=== PATIENT | female | born 1980 | race Asian ===

== ENCOUNTER 2019-02-16 16:27 | Emergency (ER) | payer OTHER ==
[2019-02-16 16:40] VITALS: TEMP 98; BMI 25.9
--- NOTE | 2019-02-16 16:41 | PDOC ---
Rapid Medical Evaluation Chief Complaint: Vaginal Bleeding Time Seen by Provider: 02/16/19 16:34 Medical Evaluation: Allergies Allergy/AdvReac Type Severity Reaction Status Date / Time No Known Allergies Allergy Verified 02/16/19 16:40 Vital Signs Temp Pulse Resp BP Pulse Ox 98 F 77 18 151/76 100 02/16/19 16:36 02/16/19 16:36 02/16/19 16:36 02/16/19 16:36 02/16/19 16:36 02/16/19 16:40 I have performed a brief in-person evaluation of this patient Chief complaint:( weeks GA c/o vaginal spotting since this am with cramping. Pertinent PE findings: stable, NAD, non-focal I have ordered the following: labs, UA, UCX The patient will proceed to the ED for further evaluation. I have performed a brief in-person evaluation of this patient. Discharge Disposition - Diagnosis Vaginal bleeding during - Referrals - Patient Instructions - Post Discharge Activity
[2019-02-16 17:26] LABS: BASO % 0.6 % (0-2.0); HEMATOCRIT 33.8 % (32.4-45.2); HEMOGLOBIN 10.4 GM/dL (10.7-15.3); LYMPH % 27.4 % (8-40); MCH 20.7 pg (25.7-33.7); MCHC 30.7 g/dl (32.0-36.0); MEAN CELL VOLUME 67.3 fl (80-96); MEAN PLT VOLUME 8.9 fl (7.5-11.1); MONO % 9.2 % (3.8-10.2); NEUT % 60.8 % (42.8-82.8); PLATELET COUNT 314 K/MM3 (134-434); RBC 5.02 M/mm3 (3.60-5.2); RDW 18.2 % (11.6-15.6); WHITE BLOOD COUNT 10.8 K/mm3 (4.0-10.0)
[2019-02-16 17:28] LABS: EPI CELLS 1.4 /HPF (0-5/HPF); HYALINE CASTS 2 /lpf (0-8); PH,URINE 6.5 (5.0-8.0); URINE APPEARANCE CLEAR; URINE BACTERIA 14.8 /hpf (NEGATIVE); URINE BILIRUBIN NEGATIVE (NEGATIVE); URINE COLOR YELLOW; URINE GLUCOSE (UA) NEGATIVE (NEGATIVE); URINE KETONE NEGATIVE (NEGATIVE); URINE LEUK ESTERASE NEGATIVE (NEGATIVE); URINE NITRITE NEGATIVE (NEGATIVE); URINE PROTEIN NEGATIVE (NEGATIVE); URINE RBC 1 /hpf (0-4); URINE UROBILINOGEN 0.2 mg/dL (0.2-1.0); URINE WBC 1 /hpf (0-5)
--- NOTE | 2019-02-16 18:00 | PDOC ---
History of Present Illness - General Chief Complaint: Vaginal Bleeding Stated Complaint: 9WKS BLEEDING Time Seen by Provider: 02/16/19 16:34 History Source: Patient Exam Limitations: No Limitations - History of Present Illness Travel History: No Initial Comments: 02/16/19 17:57 HISTORY OF PRESENT ILLNESS: This is a 38-year-old woman G4, P2, A1 with LMP of presents to the emergency department for evaluation of scant vaginal bleeding and lower abdominal cramping which started today. Patient states she use the restroom and when she wiped afterwards she noted some bright red blood on the toilet tissue. This happened a second time today and with the lower abdominal cramping patient was concerned and came to the emergency department for evaluation. Patient has been taking vitamins and is due for for scheduled visit next week. No recent travel or sick contacts. PAST MEDICAL HISTORY: Anemia SURGICAL HISTORY: Denies ALLERGIES: No known drug allergies REVIEW OF SYSTEMS General/Constitutional: Denies fever or chills. Denies weakness, weight change. HEENT: Denies change in vision. Denies ear pain or discharge. Denies sore throat. Cardiovascular: Denies chest pain or shortness of breath. Respiratory: Denies cough, wheezing, or hemoptysis. Gastrointestinal: Denies nausea, vomiting, diarrhea or constipation. Denies rectal bleeding. Genitourinary: See HPI Musculoskeletal: Denies joint or muscle swelling or pain. Denies neck or back pain. Skin and breasts: Denies rash or easy bruising. Neurologic: Denies headache, vertigo, loss of consciousness, or loss of sensation. Psychiatric: Denies depression or anxiety. Endocrine: Denies increased thirst. Denies abnormal weight change. Hematologic/Lymphatic: Denies anemia, easy bleeding, or history of blood clots. Allergic/Immunologic: Denies hives or skin allergy. Denies latex allergy. PHYSICAL EXAM General Appearance: Well-appearing, appropriately dressed. No apparent distress , no intoxication. HEENT: EOMI, PERRLA, normal ENT inspection, normal voice, TMs normal, pharynx normal. No conjunctival pallor. No photophobia, scleral icterus. Neck: Supple. Trachea midline. No tenderness, rigidity, carotid bruit, stridor , lymphadenopathy, or thyromegaly. Respiratory/Chest: Lungs CTAB. No shortness of breath, chest tenderness, respiratory distress, accessory muscle use. No crackles, rales, rhonchi, stridor , wheezing, dullness Cardiovascular: RRR. S1, S2. No JVD, murmur, bradycardia, tachycardia. Vascular Pulses: Dorsalis-Pedis (R): 2+, Dorsalis-Pedis (L): 2+ Gastrointestinal/Abdominal: Normal bowel sounds. Abdomen soft, non-distended. No tenderness or rebound tenderness. No organomegaly, pulsatile mass, guarding, hernia, hepatomegaly, splenomegaly. Lymphatic: No adenopathy, tenderness. Musculoskeletal/Extremities: Normal inspection. FROM of all extremities, normal capillary refill. Pelvis Stable. No CVA tenderness. No tenderness to extremities, pedal edema, swelling, erythema or deformity. Integumentary: Appropriate color, dry, warm. No cyanosis, erythema, jaundice or rash Neurologic: angle shearer II-XII intact. Fully oriented, alert. Appropriate mood/affect. Motor strength 5/5. No appreciable EOM palsy, facial droop or sensory deficit. Past History - Past Medical History Allergies/Adverse Reactions: Allergies Allergy/AdvReac Type Severity Reaction Status Date / Time No Known Allergies Allergy Verified 02/16/19 16:40 Home Medications: Ambulatory Orders NK [No Known Home Medication] 02/16/19 Asthma: No Cancer: No Cardiac Disorders: No COPD: No Diabetes: No HTN: No Seizures: No Thyroid Disease: No - Psycho Social/Smoking Cessation Hx Smoking History: Never smoked Have you smoked in the past 12 months: No Hx Alcohol Use: No Drug/Substance Use Hx: No Hx Substance Use Treatment: No *Physical Exam - Vital Signs Last Vital Signs Temp Pulse Resp BP Pulse Ox 98 F 77 18 151/76 100 02/16/19 16:36 02/16/19 16:36 02/16/19 16:36 02/16/19 16:36 02/16/19 16:36 ED Treatment Course - LABORATORY CBC & Chemistry Diagram: 02/16/19 17:05 02/16/19 17:05 - ADDITIONAL ORDERS Additional order review: Laboratory Results 02/16/19 17:05 Urine Color Yellow Urine Appearance Clear Urine pH 6.5 Ur Specific [place] 1.003 L Urine Protein Negative Urine Glucose (UA) Negative Urine Ketones Negative Urine Blood 1+ H Urine Nitrite Negative Urine Bilirubin Negative Urine Urobilinogen 0.2 Ur Leukocyte Esterase Negative Urine WBC (Auto) 1 Urine RBC (Auto) 1 Urine Casts (Auto) 2 U Epithel Cells (Auto) 1.4 Urine Bacteria (Auto) 14.8 02/16/19 17:05 RBC 5.02 MCV 67.3 L MCHC 30.7 L RDW 18.2 H MPV 8.9 Neutrophils % 60.8 Lymphocytes % 27.4 D Monocytes % 9.2 Eosinophils % 2.0 Basophils % 0.6 Medical Decision Making - Medical Decision Making 02/16/19 17:59 A/P: 38-year-old woman is 9 weeks with vaginal spotting and abdominal cramping for [address] [facility] Transvaginal ultrasound Patient is refusing analgesia at this time. Reassess 02/16/19 20:38 Transvaginal ultrasound is read by Dr. Paula: Single viable intrauterine gestation is noted at approximately 6 weeks 1 day Embryonic heart rate 115 bpm. There is a subtle visualization of a small leiomyoma within the uterine fundus Uterus appears unremarkable Endometrial thickness is 0.8 cm No free intraperitoneal fluid is noted Ovaries appear unremarkable demonstrating several subcentimeter follicles bilaterally Laboratory Tests 02/16/19 02/16/19 17:05 17:05 Beta HCG, Quant 13642.7 Blood Type O POSITIVE Given normal exam findings I will discharge the patient home to follow-up with CHANGE CONTROL COORDINATOR. I discussed the physical exam findings, ancillary test results and final diagnoses with the patient. I answered all of the patient's questions. The patient was satisfied with the care received and felt comfortable with the discharge plan and treatment plan. The patient will call their primary care physician within 24 hours to arrange follow-up and will return to the Emergency Department with any new, persistent or worsening symptoms. Discharge - Discharge Information Problems reviewed: Yes Clinical Impression/Diagnosis: Vaginal bleeding during Condition: Stable Disposition: HOME - Admission No - Follow up/Referral Referrals: Eduardo Stevenson MD [Staff Physician] - - Patient Discharge Instructions Additional Instructions: Take your vitamins. Keep well-hydrated. Avoid tobacco and alcohol as well as illegal drugs. Make an appointment with your ORNAMENTAL PAINTER for reevaluation. Return to the emergency department immediately for severe pain, vaginal bleeding that requires more than 2 pads per hour or for any other symptoms. Thank you very much for choosing us to provide your emergent health care needs. - Post Discharge Activity
[2019-02-16 18:07] LABS: PLATELET ESTIMATE ADEQUATE
[2019-02-16 18:23] LABS: ALBUMIN 3.6 g/dl (3.4-5.0); BILIRUBIN,TOTAL 0.3 mg/dL (0.2-1); BLOOD UREA NITROGEN 8.3 mg/dL (7-18); CALCIUM 9.7 mg/dL (8.5-10.1); CREATININE 0.6 mg/dL (0.55-1.3); POTASSIUM 4.3 mmol/L (3.5-5.1); TOT PROT 7.8 g/dl (6.4-8.2)
[2019-02-16 20:58] VITALS: BP 119/70; PULSE 73
== END 2019-02-16 20:58 | disposition home or self-care (01) ==
LOC: JER 16:27
DX: O26.891 Other specified pregnancy related conditions, first trimester (principal); O20.8 Other hemorrhage in early pregnancy; O34.11 Maternal care for benign tumor of corpus uteri, first trimester; D25.9 Leiomyoma of uterus, unspecified; Z3A.01 Less than 8 weeks gestation of pregnancy
CPT/HCPCS: 36415; 76817-TC; 80053; 81003; 84702; 85025; 86850; 86900; 86901; 87086; 99282-25

== ENCOUNTER 2019-03-28 18:07 | Emergency (ER) | payer OTHER ==
[2019-03-28 18:21] VITALS: TEMP 98.3; BMI 26.3
--- NOTE | 2019-03-28 19:50 | PDOC ---
History of Present Illness - General History Source: Patient, Old Records Exam Limitations: No Limitations - History of Present Illness Travel History: No Initial Comments: 03/28/19 19:43 HISTORY OF PRESENT ILLNESS: 38-year-old woman G4, is currently 11 weeks by dates presents to the emergency department for evaluation of right- sided pelvic pain radiating to her lower back with scant yellow/brown vaginal discharge for 1 week and vaginal spotting today. Patient has been in contact with her insurance operations rep who recommended that she get an ultrasound. Patient attempted to obtain an outpatient ultrasound but was unable to secure an appointment and it was suggested that she come to the emergency department for evaluation. She reports she is currently not sexually active since conception. She denies urinary frequency, dysuria, urinary urgency. No recent travel or sick contacts. PAST MEDICAL HISTORY: Denies past medical history SURGICAL HISTORY: Denies ALLERGIES: No known drug allergies REVIEW OF SYSTEMS General/Constitutional: Denies fever or chills. Denies weakness, weight change. HEENT: Denies change in vision. Denies ear pain or discharge. Denies sore throat. Cardiovascular: Denies chest pain or shortness of breath. Respiratory: Denies cough, wheezing, or hemoptysis. Gastrointestinal: Denies nausea, vomiting, diarrhea or constipation. Denies rectal bleeding. Genitourinary: See HPI Musculoskeletal: Denies joint or muscle swelling or pain. Denies neck or back pain. Skin and breasts: Denies rash or easy bruising. Neurologic: Denies headache, vertigo, loss of consciousness, or loss of sensation. Psychiatric: Denies depression or anxiety. Endocrine: Denies increased thirst. Denies abnormal weight change. Hematologic/Lymphatic: Denies anemia, easy bleeding, or history of blood clots. Allergic/Immunologic: Denies hives or skin allergy. Denies latex allergy. PHYSICAL EXAM General Appearance: Well-appearing, appropriately dressed. No apparent distress , no intoxication. Respiratory/Chest: Lungs CTAB. No shortness of breath, chest tenderness, respiratory distress, accessory muscle use. No crackles, rales, rhonchi, stridor , wheezing, dullness Cardiovascular: RRR. S1, S2. No JVD, murmur, bradycardia, tachycardia. Gastrointestinal/Abdominal: Normal bowel sounds. Abdomen soft, non-distended. No tenderness or rebound tenderness. No organomegaly, pulsatile mass, guarding, hernia, hepatomegaly, splenomegaly. Lymphatic: No adenopathy, tenderness. <Eliel Rdz - Last Filed: 03/28/19 21:15> <Estella Velazco - Last Filed: 03/28/19 21:47> - General Chief Complaint: Vaginal Bleeding Stated Complaint: 11 WEEKS Time Seen by Provider: 03/28/19 19:26 Past History - Past Medical History Asthma: No Cancer: No Cardiac Disorders: No COPD: No Diabetes: No HTN: No Seizures: No Thyroid Disease: No - Reproductive History Is Patient Now?: Yes (#): 4 Para: 2 Therapeutic (s) & number: No Spontaneous : 1 - Immunization History Immunization Up to Date: Yes - Psycho Social/Smoking Cessation Hx Smoking History: Never smoked Have you smoked in the past 12 months: No Information on smoking cessation initiated: No Hx Alcohol Use: No Drug/Substance Use Hx: No Hx Substance Use Treatment: No <Eliel Rdz - Last Filed: 03/28/19 21:15> <Estella Velazco - Last Filed: 03/28/19 21:47> - Past Medical History Allergies/Adverse Reactions: Allergies Allergy/AdvReac Type Severity Reaction Status Date / Time No Known Allergies Allergy Verified 03/28/19 18:18 Home Medications: Ambulatory Orders Prenat 115/Iron Fum/Folic/Dss [ 19 Tablet] 1 each PO DAILY 03/28/19 *Physical Exam - Vital Signs Last Vital Signs Temp Pulse Resp BP Pulse Ox 98.3 F 80 17 152/93 100 03/28/19 18:18 03/28/19 18:18 03/28/19 18:18 03/28/19 18:18 03/28/19 18:18 - Physical Exam Comments:: 03/28/19 19:45 RN Charliew present as club steward. Female Pelvic Exam: positive: normal external exam, cervical os closed, normal adnexa, normal size ovaries, discharge (Minimal fresh blood in the vagina. No pooling present. Scant thin white. No odor detected. ). negative: CMT, adnexal tenderness <Eliel Rdz - Last Filed: 03/28/19 21:15> - Vital Signs Last Vital Signs Temp Pulse Resp BP Pulse Ox 98.3 F 80 17 152/93 100 03/28/19 18:18 03/28/19 18:18 03/28/19 18:18 03/28/19 18:18 03/28/19 18:18 <VelazcoEstella - Last Filed: 03/28/19 21:47> ED Treatment Course - LABORATORY CBC & Chemistry Diagram: 03/28/19 19:45 03/28/19 19:45 - RADIOLOGY Radiology Studies Ordered: Category Date Time Status TRANSVAGINAL US PREG [US] Stat Ultrasound 03/28/19 19:29 Ordered <Eliel Rdz - Last Filed: 03/28/19 21:15> - LABORATORY CBC & Chemistry Diagram: 03/28/19 19:45 03/28/19 19:45 - ADDITIONAL ORDERS Additional order review: Laboratory Results 03/28/19 19:45 Urine Color Yellow Urine Appearance Clear Urine pH 6.5 Ur Specific [place] 1.002 L Urine Protein Negative Urine Glucose (UA) Negative Urine Ketones Negative Urine Blood 2+ H Urine Nitrite Negative Urine Bilirubin Negative Urine Urobilinogen 0.2 Ur Leukocyte Esterase Negative 03/28/19 19:45 RBC 5.36 H MCV 71.8 L MCHC 31.4 L RDW 22.6 H MPV 8.9 Neutrophils % 59.6 Lymphocytes % 26.8 Monocytes % 10.2 Eosinophils % 2.9 Basophils % 0.5 <Estella Velazco - Last Filed: 03/28/19 21:47> Medical Decision Making - Medical Decision Making 03/28/19 19:47 A/P: 38-year-old woman currently 11 weeks with yellow/brown vaginal discharge for 1 week vaginal spotting today. Pelvic exam is notable for thin white discharge which is odor free. Cervical os is closed. Minimal bleeding present from cervix. No pooling of blood present. No adnexal tenderness present. No cervical motion tenderness. Differential diagnosis includes placenta previa, abruption of placenta, threatened , urinary tract infection, bacterial vaginosis, Shabana infection Less likely bacterial vaginosis as discharge is odorless. Appearance of discharge not consistent with Shabana infection. Labs including type and screen and beta hCG Urinalysis, urine Genital culture Transvaginal ultrasound Reassess 03/28/19 21:15 Ultrasound is read by Dr. Paula: Comparison to prior ultrasound exam of 02/16/2019 there is no longer identification of cardiac activity in association with single intrauterine embryonic pole (crown-rump length 1.8 cm, gestational age of 8 weeks 4 days). The gestational sac now demonstrates an irregular contour. No subchorionic implantation bleed is seen Patient has an appointment with her RELOCATION MANAGER on 03/30. Laboratory Tests 02/16/19 03/28/19 17:05 19:45 Beta HCG, Quant 67980.7 9886.2 Discharge home I discussed the physical exam findings, ancillary test results and final diagnoses with the patient. I answered all of the patient's questions. The patient was satisfied with the care received and felt comfortable with the discharge plan and treatment plan. The patient will call their primary care physician within 24 hours to arrange follow-up and will return to the Emergency Department with any new, persistent or worsening symptoms. <Eliel Rdz - Last Filed: 03/28/19 21:15> - Medical Decision Making The patient was seen and evaluated in conjunction with midlevel provider under my direct supervision, ancillary studies were reviewed. I agree with the plan as outlined SOLDERER ASSEMBLER [place]. HPI, workup/dispo as outlined. VS reviewed, wnl. labs and lytes wnl. rh pos, no rhogam vag exam as documented above, does not appear infectious, defer abx/medications at this time, f/u culture. ultrasound with IUP visualized. but suspecting demise without FHR identified. irregular appearing GS. no subchorio bleed. likely demise vs threatened , instructions provided. bleeding precautions. anticipate discharge, pcp/chief digital media officer followup, return precautions has chief digital media officer appt coming up in 2 days, so told to followup appropriatley then given downtrending beta hcg. 03/28/19 20:16 03/28/19 20:44 03/28/19 21:45 <Estella Velazco - Last Filed: 03/28/19 21:47> Discharge - Discharge Information Problems reviewed: Yes - Admission No <Eliel Rdz - Last Filed: 03/28/19 21:15> <Estella Velazco - Last Filed: 03/28/19 21:47> - Discharge Information Clinical Impression/Diagnosis: demise Condition: Fair Disposition: HOME - Follow up/Referral Referrals: Eduardo Stevenson MD [Staff Physician] - - Patient Discharge Instructions Additional Instructions: Keep well-hydrated. Keep your appointment with your RELOCATION MANAGER for reevaluation. Return to the emergency department immediately for fevers, chills, severe pain, vaginal bleeding that requires more than 2 pads per hour or for any other symptoms. Thank you very much for choosing us to provide your emergent health care needs.
[2019-03-28 20:03] LABS: BASO % 0.5 % (0-2.0); EOS % 2.9 % (0-4.5); HEMATOCRIT 38.5 % (32.4-45.2); HEMOGLOBIN 12.1 GM/dL (10.7-15.3); LYMPH % 26.8 % (8-40); MCH 22.5 pg (25.7-33.7); MCHC 31.4 g/dl (32.0-36.0); MEAN CELL VOLUME 71.8 fl (80-96); MEAN PLT VOLUME 8.9 fl (7.5-11.1); MONO % 10.2 % (3.8-10.2); NEUT % 59.6 % (42.8-82.8); PLATELET COUNT 306 K/MM3 (134-434); RBC 5.36 M/mm3 (3.60-5.2); RDW 22.6 % (11.6-15.6); WHITE BLOOD COUNT 8.5 K/mm3 (4.0-10.0)
[2019-03-28 20:11] LABS: PH,URINE 6.5 (5.0-8.0); URINE APPEARANCE CLEAR; URINE BILIRUBIN NEGATIVE (NEGATIVE); URINE COLOR YELLOW; URINE GLUCOSE (UA) NEGATIVE (NEGATIVE); URINE KETONE NEGATIVE (NEGATIVE); URINE LEUK ESTERASE NEGATIVE (NEGATIVE); URINE NITRITE NEGATIVE (NEGATIVE); URINE PROTEIN NEGATIVE (NEGATIVE); URINE UROBILINOGEN 0.2 mg/dL (0.2-1.0)
[2019-03-28 20:18] LABS: BLOOD UREA NITROGEN 9.9 mg/dL (7-18); CALCIUM 9.1 mg/dL (8.5-10.1); CREATININE 0.6 mg/dL (0.55-1.3); POTASSIUM 3.8 mmol/L (3.5-5.1)
[2019-03-28 20:44] LABS: ANISOCYTOSIS 3+
[2019-03-28 21:41] VITALS: BP 149/87; PULSE 76
[2019-03-28 23:40] LABS: URINE RBC 0-5 /hpf (0-4); URINE WBC 0-3 /hpf (0-5)
[2019-03-28 23:41] LABS: HYALINE CASTS 0 /lpf (0-8); URINE BACTERIA FEW /hpf (NEGATIVE); YEAST FEW (NEGATIVE)
== END 2019-03-28 21:40 | disposition home or self-care (01) ==
LOC: JER 18:07
DX: O36.4XX0 Maternal care for intrauterine death, not applicable or unspecified (principal)
CPT/HCPCS: 36415; 76817-TC; 80048; 81003; 84702; 85025; 86850; 86900; 86901; 87070; 87077; 87086; 87205; 99285-25